=== PATIENT | male | born 1950 | race Two or more races ===

== ENCOUNTER → 2024-11-05 | Outpatient (BNVA) | payer MEDICARE, MEDICAID, SELFPAY | END | disposition home or self-care (01) | PROVIDERS: PCP Nurse Practitioner Primary Care; Referring Provider Nurse Practitioner Primary Care; Visit Provider Urology | DX: N40.1 Benign prostatic hyperplasia with lower urinary tract symptoms (principal); N13.8 Other obstructive and reflux uropathy; E11.9 Type 2 diabetes mellitus without complications; I10 Essential (primary) hypertension; Z80.42 Family history of malignant neoplasm of prostate; Z98.890 Other specified postprocedural states | CPT/HCPCS: 81003; 99212; 99213; G0463 ==